=== PATIENT | male | born 1985 | race Hispanic/Latino ===

== ENCOUNTER 2019-08-19 12:38 | Day surgery (SDC) | payer BC ==
[2019-08-18 14:43] VITALS: BMI 29.0
[2019-08-19] MEDS ORDERED: CEFAZOLIN 1 GM VIAL ONE (15:04)
[2019-08-19] MEDS ORDERED: Sodium Chloride 0.9% 100 ML ONE (15:04)
[2019-08-19] MEDS ORDERED: Bupivacaine PF 0.5% 30 ML VIAL ONE (17:12)
[2019-08-19] MEDS ORDERED: Bacitracin Zinc Ointment 30 gm TUBE ONE (17:12)
[2019-08-19] MEDS ORDERED: Sodium Chloride 0.9% 10 ML ONE (17:12)
[2019-08-19] MEDS ORDERED: Fentanyl 100 MCG/2 ML VIAL ONE (17:12)
[2019-08-19] MEDS ORDERED: Ketorolac Tromethamine 30 MG/ML VIAL ONE (19:53)
--- NOTE | 2019-08-20 11:18 | OP ---
DATE OF PROCEDURE: 08/19/2019 PREOPERATIVE DIAGNOSES: 1. Left middle finger radial digital nerve laceration, 5 cm wound. 2. Left index finger 3.0 cm wound with 75% zone 4 extensor tendon laceration. POSTOPERATIVE DIAGNOSES: 1. Left middle finger radial digital nerve laceration, 5 cm wound. 2. Left index finger 3.0 cm wound with 75% zone 4 extensor tendon laceration. PROCEDURES PERFORMED: Left middle finger: 1. Wound debridement. 2. Closure of 5 cm wound. 3. Microscopic digital nerve neuroplasty x2. 4. Microscopic radial digital nerve repair. Left index finger: 1. Wound debridement. 2. Closure of 3 cm wound. 3. Extensor tendon repair zone 4, 75%. Application of short-arm splint. TOURNIQUET TIME: 40 minutes. ESTIMATED BLOOD LOSS: 15 mL. COMPLICATION: None. INDICATIONS: The patient sustained a laceration approximately 2-1/2 days prior. Also, he had a 2.0 radial aspect of the left middle finger, pain with resistive extension PIP joint indicative of the diagnosis that we would find today. No circulatory loss. DESCRIPTION OF PROCEDURE: After successful general endotracheal anesthesia, the limb was prepped and draped. Time-out done appropriately. All wounds were opened, the dorsal wound of the index finger was extended 1 cm distal and proximal in zigzag fashion. The same was done 1 cm distal and 2 cm proximal over the middle finger but it was a palmar wound. First, in the index finger, we carried through skin and subcutaneous tissue. There was minimal hematoma formation. No gross contamination, but we debrided the wound edges using tenotomy scissors, the 15 blade knife, irrigated with 1 L normal saline. The debridement was excisional. There was no gross infection and went down to the tendon laceration which was slightly oblique in the center occupied approximately 75% of the extensor tendon. Once he was prepared, we then used a buried [id number] 4-0 Prolene suture x4 in excellent fashion to reapproximate the extensor. We then obtained hemostasis and closed the wound with interrupted 4-0 nylon in simple pattern. Attention turned back to the previous wound on the middle finger otherwise debridement in the same fashion, except there was a longer 5 cm wound in the central portion with a jagged edges, so it was debrided to smooth. We then brought the microscope in the field. Performed microscopic neuroplasty, found that the entire ulnar neurovascular bundle was intact to the point 1 cm distal to the laceration and 1 cm proximal and the entire arterial circulation on the radial side was intact in the same distribution relative laceration but one of the rami, the most central rami was cut from the radial digital nerve under microscope. We then brought 10-0 Nurolon suture onto the field, and placed three 10-0 sutures in this nerve repair and it was excellent. The remainder of the nerve trunk and artery was intact on that side. We released the tourniquet, we finished irrigation and debridement, we obtained hemostasis on the middle finger, closed this wound with interrupted 4-0 nylon in simple pattern. We put bacitracin and Adaptic on both wounds, placed both fingers in a bulky dressing with a full extension of MP joint and PIP joint with a splint up to the level of the nail bed, incorporating these two digits, leaving all digits free. The patient left the operating room after the application of splint without evidence of anesthetic or operative complication. Job ID: [id number]
== END 2019-08-19 21:21 | disposition home or self-care (01) ==
LOC: SDC 12:38
PROVIDERS: ATTEND Orthopaedic Surgery Hand Surgery
PROC: 0LQ80ZZ Repair Left Hand Tendon, Open Approach (ICD-10-PCS; principal; 2019-08-19)
PROC: 01Q60ZZ Repair Radial Nerve, Open Approach (ICD-10-PCS; principal; 2019-08-19)
DX: S64.493A Injury of digital nerve of left middle finger, initial encounter (principal); S66.321A Laceration of extensor muscle, fascia and tendon of left index finger at wrist and hand level, initial encounter; S61.211A Laceration without foreign body of left index finger without damage to nail, initial encounter; S61.213A Laceration without foreign body of left middle finger without damage to nail, initial encounter; I10 Essential (primary) hypertension; Z79.899 Other long term (current) drug therapy; Z91.018 Allergy to other foods; W26.8XXA Contact with other sharp object(s), not elsewhere classified, initial encounter
CPT/HCPCS: J0690; J1885; J3010; J3490; S0020